=== PATIENT | male | born 1975 | race African-American/Black ===

== ENCOUNTER → 2017-07-29 | Outpatient (CLI) | payer BC ==
--- NOTE | 2017-07-30 11:54 | MR ---
EXAMINATION TYPE: MR lumbar spine wo con DATE OF EXAM: 07/29/2017 6:17 PM COMPARISON: NONE HISTORY: low back pain x8 years Multiplanar, MultiSpin echo imaging of the lumbar spine was performed. L1-L2: Normal disc appearance without desiccation. No herniation, protrusion or disc bulging. No ca nal stenosis is present. Foramina are patent bilaterally. L2-L3: Normal disc appearance without desiccation. No herniation, protrusion or disc bulging. No ca nal stenosis is present. Foramina are patent bilaterally. L3-L4: Normal disc appearance without desiccation. No herniation, protrusion or disc bulging. No ca nal stenosis is present. Foramina are patent bilaterally. L4-L5: Normal disc appearance without desiccation. No herniation, protrusion or disc bulging. No ca nal stenosis is present. Foramina are patent bilaterally. L5-S1: Moderate disc desiccation noted. Left paracentral disc herniation with partial encapsulating s pur. Left lateral recess stenosis and left foraminal encroachment. Edema of the exiting nerve root. P artial encapsulating spur is also identified. Degenerative change of the facet joints. Lumbar segments are intact. No paraspinal masses are identified. Conus medullaris has a normal appe arance. IMPRESSION: 1. Left paracentral disc herniation partial encapsulating spur resulting in disc endplate complex wit h left foraminal encroachment and left lateral recess stenosis at L5-S1.
== END | disposition home or self-care (01) ==
LOC: RADMRIMAIN 17:43
PROVIDERS: ATTEND Internal Medicine
DX: M48.07 Spinal stenosis, lumbosacral region (principal); M51.26 Other intervertebral disc displacement, lumbar region
CPT/HCPCS: 72148

== ENCOUNTER 2018-03-08 19:14 | Inpatient (IN) | payer BC ==
--- NOTE | 2018-03-08 19:19 | ED ---
Chest Pain HPI - General Stated Complaint: Chest Pain Time Seen by Provider: 03/08/18 19:16 Source: RN notes reviewed, old records reviewed - History of Present Illness Initial Comments: This is a 42-year-old male to the ER for evaluation. Patient resents today for evaluation regarding anterior chest pain heaviness. Patient is presenting for evaluation regarding syncopal event. Patient has family at bedside family was witnessed the syncope. Patient does admit to smoking marijuana today not having a very good appetite and made not eating or drinking much fluid throughout the day. He states he was sitting in his chair be given little sweaty chest heaviness and then passed out. Patient came to relatively quickly , and is still complaining of persistent chest pain since MD Complaint: chest pain -: minutes(s) Onset: during rest Pain Location: substernal, left chest Pain Radiation: none Severity: mild Severity scale (1-10): 4 Quality: heaviness Consistency: constant Improves With: nothing Worsens With: nothing Anginal Symptoms: nausea, diaphoresis, dyspnea Other Symptoms: cough, syncope Treatments Prior to Arrival: none - Related Data Home Medications Medication Instructions Recorded Confirmed No Known Home Medications 03/08/18 03/08/18 Allergies Allergy/AdvReac Type Severity Reaction Status Date / Time No Known Allergies Allergy Verified 03/08/18 19:37 Review of Systems ROS Statement: Those systems with pertinent positive or pertinent negative responses have been documented in the HPI. ROS Other: All systems not noted in ROS Statement are negative. EKG Findings - EKG Comments: EKG Findings:: EKS shows STEMI anterior ST elevation, inferior T inversion and depression, rate of 76, WV 124, QRS 112, QTc 447 General Exam General appearance: alert, in no apparent distress Head exam: Present: atraumatic, normocephalic, normal inspection Eye exam: Present: normal appearance, PERRL, EOMI. Absent: scleral icterus, conjunctival injection, periorbital swelling ENT exam: Present: normal exam, mucous membranes moist Neck exam: Present: normal inspection. Absent: tenderness, meningismus, lymphadenopathy Respiratory exam: Present: normal lung sounds bilaterally. Absent: respiratory distress, wheezes, rales, rhonchi, stridor Cardiovascular Exam: Present: regular rate, normal rhythm, normal heart sounds. Absent: systolic murmur, diastolic murmur, rubs, gallop, clicks GI/Abdominal exam: Present: soft, normal bowel sounds. Absent: distended, tenderness, guarding, rebound, rigid Extremities exam: Present: normal inspection, full ROM, normal capillary refill. Absent: tenderness, pedal edema, joint swelling, calf tenderness Back exam: Present: normal inspection Neurological exam: Present: alert, oriented X3, CN II-XII intact Psychiatric exam: Present: normal affect, normal mood Skin exam: Present: warm, dry, intact, normal color. Absent: rash Course Vital Signs 03/08/18 03/08/18 03/08/18 19:16 19:18 19:20 Temperature 98.0 F Pulse Rate 79 Respiratory 16 23 Rate Blood Pressure 124/81 124/81 O2 Sat by Pulse 94 L 93 L 94 L Oximetry 03/08/18 03/08/18 19:30 19:40 Temperature Pulse Rate 50 L 97 Respiratory 8 L 15 Rate Blood Pressure 124/81 91/58 O2 Sat by Pulse 95 96 Oximetry - Reevaluation(s) Reevaluation #1: 03/08/18 19:39 Medical record is reviewed Reevaluation #2: 03/08/18 19:39 Patient and family informed of positive EKG findings. She'll Dr. Murillo for cardiology, he is aware of patient, STEMI is paged on the overhead Chest Pain MDM - MDM 42 male to ER for evaluation of chest pain heaviness anterior chest after syncopal event. Patient is EKG findings positive for STEMI, patient be admitted to the [facility] Critical Care Time Critical Care Time: Yes Total Critical Care Time: 31 Disposition Clinical Impression: ST elevation myocardial infarction (STEMI), Syncope Disposition: ADMITTED IP TO THIS HOSP Condition: Serious Is patient prescribed a controlled substance at d/c from ED?: No Referrals: Anh Hernández MD [Primary Care Provider] - 1-2 days
[2018-03-08] MEDS ORDERED: SODIUM CHLORIDE 0.9% 1,000 ML IV STA (19:31)
[2018-03-08] MEDS ORDERED: HEPARIN SODIUM,PORCINE 5,000 UNIT/ML 1 ML VIAL IV PRN (19:37)
[2018-03-08] MEDS ORDERED: NITROGLYCERIN SL TABS 0.4 MG TAB SUBLINGUAL PRN (19:37)
[2018-03-08] MEDS ORDERED: HEPARIN SODIUM,PORCINE 5,000 UNIT/ML 1 ML VIAL IV ONE (19:37)
[2018-03-08] MEDS ORDERED: HEPARIN SOD,PORK IN 0.45% NACL 25,000 UNIT in 0.45% NACL 1 500ML.BAG IV SCH (19:45)
[2018-03-08] MEDS ORDERED: ASPIRIN 81 MG PO STA (19:48)
[2018-03-08 19:50] LABS: Basophils # (A) 0.1 k/uL (0-0.2); Basophils % (A) 1 %; Eosinophils # (A) 0.2 k/uL (0-0.7); Eosinophils % (A) 2 %; HCT 44.7 % (39.0-53.0); HGB 14.8 gm/dL (13.0-17.5); Lymphocytes # (A) 3.6 k/uL (1.0-4.8); Lymphocytes % (A) 37 %; MCH 30.7 pg (25.0-35.0); MCHC 33.2 g/dL (31.0-37.0); MCV 92.5 fL (80.0-100.0); Mean Platelet Volume 8.1; Monocytes # (A) 0.6 k/uL (0-1.0); Monocytes % (A) 7 %; Neutrophils # (A) 5.1 k/uL (1.3-7.7); Neutrophils % (A) 52 %; Platelet Count 294 k/uL (150-450); RBC 4.83 m/uL (4.30-5.90); RDW 14.6 % (11.5-15.5); WBC 9.8 k/uL (3.8-10.6)
--- NOTE | 2018-03-08 19:50 | XR ---
EXAMINATION TYPE: XR chest 2V DATE OF EXAM: 03/08/2018 COMPARISON: NONE HISTORY: Chest pain TECHNIQUE: Frontal and lateral views of the chest are obtained. FINDINGS: Heart and mediastinum are normal. Lungs are clear. Diaphragm is normal. There are chest le ads. IMPRESSION: No active cardiopulmonary disease.
[2018-03-08 20:04] LABS: D-Dimer 0.45 mg/L FEU (<0.60); INR 1.1 (<1.2); Partial Thromboplastin Time 24.8 sec (22.0-30.0); Prothrombin Time 10.6 sec (9.0-12.0)
[2018-03-08 20:05] LABS: ALT 37 U/L (21-72); AST 25 U/L (17-59); Alkaline Phosphatase 52 U/L (38-126); Anion Gap 6 mmol/L; Blood Urea Nitrogen 11 mg/dL (9-20); Calcium 9.1 mg/dL (8.4-10.2); Carbon Dioxide 26 mmol/L (22-30); Chloride 107 mmol/L (98-107); Glucose 93 mg/dL (74-99); Lipase 59 U/L (23-300); Magnesium 1.9 mg/dL (1.6-2.3); Potassium 4.3 mmol/L (3.5-5.1); Sodium 139 mmol/L (137-145); Total Bilirubin 0.7 mg/dL (0.2-1.3); Total Protein 7.1 g/dL (6.3-8.2)
[2018-03-08] MEDS ORDERED: LIDOCAINE 1% INJ 10MG/ML (20 ML MDV) ONE (20:08)
[2018-03-08 20:11] LABS: Creatine Kinase 267 U/L (55-170)
[2018-03-08] MEDS ORDERED: MIDAZOLAM 2 MG/2 ML VIAL ONE (20:22)
[2018-03-08] MEDS ORDERED: VERAPAMIL 2.5 MG/ML 2 ML AMP ONE (20:22)
[2018-03-08] MEDS ORDERED: HEPARIN SODIUM 1,000 UN/ML (10ML VL) ONE (20:22)
[2018-03-08 20:24] LABS: Creatine Kinase MB 1.1 ng/mL (0.0-2.4); Troponin I <0.012 ng/mL (0.000-0.034)
[2018-03-08] MEDS ORDERED: SODIUM CHLORIDE 0.9% 1,000 ML IV ONE (20:25)
[2018-03-08] MEDS ORDERED: IV FLUID CONTINUATION 1,000 ML IV ONE (20:25)
[2018-03-08] MEDS ORDERED: MIDAZOLAM 2 MG/2 ML VIAL IV ONE (20:26)
[2018-03-08] MEDS ORDERED: LIDOCAINE 1% INJ 10MG/ML (20 ML MDV) SQ ONE (20:28)
[2018-03-08] MEDS ORDERED: IOPAMIDOL-370 125ML BTL INJ ONE (20:40)
[2018-03-08] MEDS ORDERED: RX INFO: IV CONTRAST WAS GIVEN 1 EACH MISC MISCELLANE PRN (20:52)
--- NOTE | 2018-03-08 20:58 | P.CRDCN ---
History of Present Illness Consult date: 03/08/18 Chief complaint: Chest discomfort History of present illness: This is a 6-year-old gentleman who presented to the emergency room complaining of chest discomfort. The patient was in his usual state of health until earlier today when he had a witnessed syncopal episode. He had family at bedside who witnessed the episode. No prodromal symptoms of dizziness or lightheadedness or feeling of heart racing or fluttering. But after the episode he was experiencing chest discomfort, across the chest, as a tightness on the chest, without any radiation and without any associated symptoms. He did have some sweating associated with the chest discomfort. The chest discomfort was ongoing throughout the visit in the emergency room. The EKG showed sinus rhythm with ST elevation in the anterior leads and ST segment depression inferiorly. The chest x-ray did not show any acute abnormalities. Because of the ongoing chest discomfort and abnormal EKG which was concerning for ischemia I did recommend proceeding with a heart catheterization. The patient underwent an emergent heart catheterization and was found to have normal coronaries. The left ventricular end-diastolic pressure was normal as well and the left ventriculography revealed normal LV function. He did tolerate the procedure very well. In terms of past medical history the patient does not have any diabetes or hypertension or dyslipidemia. He does smoke about 1-1/2 pack of cigarettes every day. Beside that he does use marijuana and he did use marijuana earlier today. No family history of coronary artery disease. Past Medical History Past Medical History: No Reported History History of Any Multi-Drug Resistant Organisms: None Reported Past Surgical History: No Surgical Hx Reported Past Psychological History: No Psychological Hx Reported Smoking Status: Current every day smoker Past Alcohol Use History: None Reported Past Drug Use History: Marijuana Medications and Allergies Home Medications Medication Instructions Recorded Confirmed Type No Known Home Medications 03/08/18 03/08/18 History Allergies Allergy/AdvReac Type Severity Reaction Status Date / Time No Known Allergies Allergy Verified 03/08/18 19:37 Physical Exam Vitals: Vital Signs Temp Pulse Resp BP Pulse Ox 03/08/18 20:15 106/70 03/08/18 20:08 18 106/70 03/08/18 20:05 73 16 106/70 97 03/08/18 20:00 66 18 106/70 98 03/08/18 19:50 74 11 L 114/80 98 03/08/18 19:40 97 15 91/58 96 03/08/18 19:30 50 L 8 L 124/81 95 03/08/18 19:20 23 124/81 94 L 03/08/18 19:18 93 L 03/08/18 19:16 98.0 F 79 16 124/81 94 L Intake and Output 03/08/18 03/08/18 03/08/18 06:59 14:59 22:59 Intake Total 150 Balance 150 Intake: IV 150 Other: Weight 113.398 kg - Constitutional General appearance: no acute distress - Respiratory Respiratory: bilateral: CTA - Cardiovascular Rhythm: regular Heart sounds: normal: S1, S2 Results 03/08/18 19:33 03/08/18 19:33 Cardiac Enzymes 03/08/18 03/08/18 Range/Units 19:33 19:33 AST 25 (17-59) U/L CK-MB (CK-2) 1.1 (0.0-2.4) ng/mL Troponin I <0.012 (0.000-0.034) ng/mL Coagulation 03/08/18 Range/Units 19:33 PT 10.6 (9.0-12.0) sec APTT 24.8 (22.0-30.0) sec CBC 03/08/18 Range/Units 19:33 WBC 9.8 (3.8-10.6) k/uL RBC 4.83 (4.30-5.90) m/uL Hgb 14.8 (13.0-17.5) gm/dL Hct 44.7 (39.0-53.0) % Plt Count 294 (150-450) k/uL Comprehensive Metabolic Panel 03/08/18 Range/Units 19:33 Sodium 139 (137-145) mmol/L Potassium 4.3 (3.5-5.1) mmol/L Chloride 107 (98-107) mmol/L Carbon Dioxide 26 (22-30) mmol/L BUN 11 (9-20) mg/dL Creatinine 1.16 (0.66-1.25) mg/dL Glucose 93 (74-99) mg/dL Calcium 9.1 (8.4-10.2) mg/dL AST 25 (17-59) U/L ALT 37 (21-72) U/L Alkaline Phosphatase 52 (38-126) U/L Total Protein 7.1 (6.3-8.2) g/dL Albumin 4.0 (3.5-5.0) g/dL Current Medications Generic Name Dose Route Start Last Admin Trade Name Pao PRN Reason Stop Dose Admin Aspirin 325 mg 03/09/18 09:00 Aspirin PO DAILY [facility] Heparin Sodium (Porcine) 0 unit 03/08/18 19:37 Heparin IV Q6HR PRN Low PTT Protocol Heparin Sodium/Sodium Chloride 500 mls @ 20 mls/hr 03/08/18 19:45 25,000 unit/ Sodium Chloride IV .Q24H JOHN Protocol 8.82 UNITS/KG/HR Sodium Chloride 1,000 mls @ 100 mls/hr 03/08/18 19:45 Saline 0.9% IV .Q10H [facility] Sodium Chloride 1,000 mls @ 100 mls/hr 03/08/18 21:00 Saline 0.9% IV 03/09/18 02:01 .Q10H [facility] Metoprolol Tartrate 25 mg 03/08/18 21:00 Lopressor PO BID [facility] Miscellaneous Information 1 each 03/08/18 20:52 Rx Info: Iv Contrast Was Given MISCELLANE 03/10/18 20:52 DAILY PRN Per Protocol Nitroglycerin 0.4 mg 03/08/18 19:37 Nitrostat SUBLINGUAL Q5M PRN Chest Pain Intake and Output 03/08/18 03/08/18 03/08/18 06:59 14:59 22:59 Intake Total 150 Balance 150 Intake: IV 150 Other: Weight 113.398 kg Patient Weight 03/09/18 06:59 Weight 113.398 kg 03/08/18 19:33 03/08/18 19:33 Assessment and Plan Assessment: Assessment #1 chest discomfort #2 syncopal episode #3 significant history of smoking #4 significant history of marijuana use. Plan #1 the patient underwent a heart catheterization revealed normal coronaries #2 I would recommend monitoring the patient for additional 24 hours #3 we'll obtain an echocardiogram was Doppler #4 follow-up with the patient. Thank you for allowing us participate in his care as and we will continue following up with him
[2018-03-08] MEDS ORDERED: SODIUM CHLORIDE 0.9% 1,000 ML IV SCH (21:00)
[2018-03-08] MEDS: SODIUM CHLORIDE 0.9% 1,000 ML IV SCH ×2 (21:50→21:55)
[2018-03-08] MEDS: METOPROLOL TARTRATE 25 MG TAB PO SCH (21:53)
[2018-03-08] MEDS ORDERED: HYDROcodone/APAP 5-325MG 1 EACH TAB PO PRN (22:17)
[2018-03-08] MEDS ORDERED: HYDROmorphone 1 MG/ML 1 ML SYRINGE IVP PRN (22:18)
[2018-03-08] MEDS ORDERED: TEMAZEPAM 7.5 MG CAP PO PRN (22:18)
--- NOTE | 2018-03-08 22:39 | LTR ---
DATE OF SERVICE: March 08, 2018. Dear Dr. Hernández: Mr. Francisco Bhatia presented to the emergency room at [facility] after he had syncopal episode preceded by chest discomfort. His EKG was quite concerning for ischemia. Because of that, he underwent a heart catheterization which revealed normal coronaries. I want to thank you for allowing us to participate in his care and please do not hesitate to call us questions or concerns. Sincerely, ANKIT / EUGENIA: [id number] /
--- NOTE | 2018-03-08 22:39 | CC ---
CARDIAC CATHETERIZATION REPORT DATE OF SERVICE: March 08, 2018 PERFORMING PHYSICIAN: Estevan Murillo MD, wheel truing machine tender. PROCEDURE PERFORMED: 1. Selective right and left coronary angiogram. 2. Left heart catheterization. 3. Left ventriculography. INDICATIONS: This is a pleasant 42-year-old gentleman with history of hypertension and history of drug abuse with marijuana who presented to the hospital complaining of chest discomfort followed by syncope. The EKG was concerning for ischemia. Because of that, an emergent heart catheterization was advised. APPROACH: Right common femoral artery. COMPLICATION: None. LEVEL OF SEDATION: Moderate with sedation length of 14 minutes. PROCEDURE DESCRIPTION: After obtaining an informed consent, the patient was brought to the cardiac labor mediator. The right common femoral artery was cannulated using micropuncture technique and a micropuncture wire passed easily. Then I placed a 6-Swedish sheath in the right common femoral artery. After that, I did selective right and left coronary angiogram using JR4 and JL4 catheters. Left heart catheterization and left ventriculography were performed using 6-Swedish pigtail catheter. The procedure was completed without any complication. SELECTIVE CORONARY ANGIOGRAM: 1. The right coronary artery is a large caliber vessel and it is a dominant vessel. It is angiographically normal. Distally bifurcates into PDA and PLV branches both are angiographically normal. 2. The left main is angiographically normal. It bifurcates into the circumflex and left anterior descending artery. 3. The left circumflex is a large caliber vessel. It is a nondominant vessel. The proximal circumflex is normal. The mid circumflex is normal and gives rise into first OM branch which bifurcates into 2 small branches both are angiographically normal. The mid left circumflex after that and distal left circumflex appeared to be angiographically normal. 4. The left anterior descending artery: The proximal LAD appeared to be angiographically normal. It gives rise into the first diagonal branch which appeared to be angiographically normal. The mid LAD is normal as well and gives rise into a second diagonal branch which appeared to be angiographically normal. The LAD distally appeared to be angiographically normal. HEMODYNAMICS: The left ventricular end-diastolic pressure was 12 mmHg without significant gradient across the aortic valve. LEFT VENTRICULOGRAPHY: Left ventriculography was performed in the [place] projection and using a power injection. The left ventricular systolic function appeared to be normal with EF around 60% and hyperdynamic left ventricle. CONCLUSION: 1. Normal coronary angiogram. 2. Normal left ventricular end-diastolic pressure. 3. Normal hyperdynamic left ventricle. POST PROCEDURE MANAGEMENT: Maximize medical treatment and follow up with the patient. ANKIT / YOVANYN: [id number] /
[2018-03-08 23:11] LABS: Cholesterol 228 mg/dL (<200); HDL Cholesterol 40 mg/dL (40-60); LDL Cholesterol,Calculated 156 mg/dL (0-99); Triglycerides 162 mg/dL (<150)
[2018-03-09 01:56] LABS: Creatine Kinase 239 U/L (55-170)
[2018-03-09 02:09] LABS: Creatine Kinase MB 0.8 ng/mL (0.0-2.4); Troponin I <0.012 ng/mL (0.000-0.034)
[2018-03-09] MEDS: NICOTINE 14MG/24HR PATCH TRANSDERM SCH ×2 (04:18→07:51)
[2018-03-09] MEDS: METOPROLOL TARTRATE 25 MG TAB PO SCH (07:50)
[2018-03-09 08:05] LABS: Mean Platelet Volume 6.5; Platelet Count 295 k/uL (150-450)
[2018-03-09] MEDS ORDERED: ASPIRIN 325 MG TAB PO SCH (09:00)
--- NOTE | 2018-03-09 10:17 | CT ---
EXAMINATION TYPE: CT brain wo con DATE OF EXAM: 03/09/2018 COMPARISON: NONE HISTORY: Possible seizure CT DLP: 1103.4 mGycm. Automated Exposure Control for Dose Reduction was Utilized. TECHNIQUE: CT scan of the head is performed without contrast. FINDINGS: There is no acute intracranial hemorrhage, mass effect, or midline shift identified. Pun ctate calcification in the foramen of Nelson is likely choroid plexus calcification and benign. Incid ental note of a partially empty sella turcica. No suspicious extra-axial fluid collection. The ventri cles and sulci are within normal limits in size. The globes are intact and the visualized sinuses ar e clear. IMPRESSION: No acute intracranial hemorrhage, mass effect, or midline shift is seen.
--- NOTE | 2018-03-09 10:43 | P.HPIM ---
History of Present Illness 42-year-old gentleman came in to ER with complaints of brief episode of loss of consciousness possible seizure-like activity without any loss of bladder bowel or bladder incontinence denied any fever chills nausea vomiting abdominal pain patient does smoke marijuana daily basis did not smoke and increased dose of marijuana. Patient denied any postictal confusion. Patient when she woke up of from that the episode had chest pressure like sensation radiating to the right patient underwent cardia catheterization which did not show any significant coronary atherosclerotic vascular disease. Patient blood pressures although low may have had a syncopal episode and marijuana may have contributed to that. Cardiology cleared him for discharge and obtain a CAT scan of the head to rule out any intracranial bleed because of this possibly day of seizure although it episode is not typical for seizure. We will also obtain EEG and neurology evaluation if neurology clears and patient will be discharged patient' s LDL is elevated lifestyle modification counseling was provided for consulted nutrition regarding dietary counseling. Counseling regarding smoking cessation was provided. Review of Systems REVIEW OF SYSTEMS: CONSTITUTIONAL: No fever, no malaise, no fatigue. HEENT: No recent visual problems or hearing problems. Denied any sore throat. CARDIOVASCULAR: No chest pain, orthopnea, PND, no palpitations, PULMONARY: No shortness of breath, no cough, no hemoptysis. GASTROINTESTINAL: No diarrhea, no nausea, no vomiting, no abdominal pain. Normoactive bowel sounds. NEUROLOGICAL: No headaches, no weakness HEMATOLOGICAL: Denies any bleeding or petechiae. GENITOURINARY: Denies any burning micturition, frequency, or urgency. MUSCULOSKELETAL/RHEUMATOLOGICAL: Denies any joint pain, swelling, or any muscle pain. ENDOCRINE: Denies any polyuria or polydipsia. The rest of the 14-point review of systems is negative. Past Medical History Past Medical History: No Reported History History of Any Multi-Drug Resistant Organisms: None Reported Past Surgical History: No Surgical Hx Reported Past Psychological History: No Psychological Hx Reported Smoking Status: Current every day smoker Past Alcohol Use History: None Reported Past Drug Use History: Marijuana Medications and Allergies Home Medications Medication Instructions Recorded Confirmed Type Aspirin 81 mg PO DAILY #30 chewable 03/09/18 Rx Allergies Allergy/AdvReac Type Severity Reaction Status Date / Time No Known Allergies Allergy Verified 03/08/18 19:37 Physical Exam Vitals: Vital Signs Temp Pulse Pulse Resp BP BP Pulse Ox 03/09/18 07:53 17 10/22/18 07:48 97.5 F L 81 17 107/52 96 03/09/18 03:48 80 16 03/09/18 03:47 97.7 F 80 16 97/55 95 03/09/18 00:37 62 16 115/56 95 03/09/18 00:00 62 16 115/56 95 03/08/18 23:37 72 16 107/64 95 03/08/18 22:37 77 16 109/60 97 03/08/18 22:07 77 18 112/65 95 03/08/18 21:37 86 18 118/68 94 L 03/08/18 21:22 80 18 111/61 92 L 03/08/18 21:07 70 18 113/56 97 03/08/18 20:52 87 18 115/67 96 03/08/18 20:25 87 18 115/67 96 03/08/18 20:15 106/70 03/08/18 20:08 18 106/70 03/08/18 20:05 73 16 106/70 97 03/08/18 20:00 66 18 106/70 98 03/08/18 19:50 74 11 L 114/80 98 03/08/18 19:40 97 15 91/58 96 03/08/18 19:30 50 L 8 L 124/81 95 03/08/18 19:20 23 124/81 94 L 03/08/18 19:18 93 L 03/08/18 19:16 98.0 F 79 16 124/81 94 L Intake and Output 03/08/18 03/09/18 03/09/18 22:59 06:59 14:59 Intake Total 150 100 Balance 150 100 Intake: IV 150 Oral 100 Other: Voiding Method Urinal Urinal # Voids 1 Weight 109.9 kg 108.8 kg PHYSICAL EXAMINATION: GENERAL: The patient is alert and oriented x3, not in any acute distress. Well developed, well nourished. HEENT: Pupils are round and equally reacting to light. EOMI. No scleral icterus. No conjunctival pallor. Normocephalic, atraumatic. No pharyngeal erythema. No thyromegaly. CARDIOVASCULAR: S1 and S2 present. No murmurs, rubs, or gallops. PULMONARY: Chest is clear to auscultation, no wheezing or crackles. ABDOMEN: Soft, nontender, nondistended, normoactive bowel sounds. No palpable organomegaly. MUSCULOSKELETAL: No joint swelling or deformity. EXTREMITIES: No cyanosis, clubbing, or pedal edema. NEUROLOGICAL: Gross neurological examination did not reveal any focal deficits. SKIN: No rashes. Results CBC & Chem 7: 03/09/18 07:33 03/08/18 19:33 Labs: Abnormal Lab Results - Last 24 Hours (Table) 03/08/18 03/08/18 03/09/18 Range/Units 19:33 19:33 01:13 Total Creatine Kinase 267 H 239 H (55-170) U/L Triglycerides 162 H (<150) mg/dL Cholesterol 228 H (<200) mg/dL LDL Cholesterol, Calc 156 H (0-99) mg/dL Thrombosis Risk Factor Assmnt - Choose All That Apply Any of the Below Risk Factors Present?: Yes Each Factor Represents 1 point: Acute [place], Obesity (BMI >25) Other Risk Factors: No Other congenital or acquired thrombophilia - If yes, enter type in comment: No Thrombosis Risk Factor Assessment Total Risk Factor Score: 2 Thrombosis Risk Factor Assessment Level: Low Risk Assessment and Plan Plan: -Possible seizure or syncope: Possibility of seizure is low but eval further evaluation for seizure as mentioned above and regarding syncope which can be related to his low normal blood pressure and marijuana use. No heart rhythm abnormality. Cardiac catheterization did not show any atherosclerotic coronary occlusive disease. The patient has similar episodes in the future may need further evaluation with a Holter monitor. -Chest pain: Status post cardiac catheterization -Hyperlipidemia -Nicotine use -Marijuana use -Chronic low back pain Patient will be discharged today after evaluation by neurology, EEG.
--- NOTE | 2018-03-09 10:43 | P.DS ---
Providers Date of admission: 03/08/18 19:37 Attending physician: Tiffany Ren Consults: 03/08/18 19:37 Consult Physician Urgent Consulting Provider: Estevan Murillo Consult Reason/Comments: mi Do you want consulting provider notified?: Yes 03/09/18 09:41 Consult Physician Routine Consulting Provider: Renetta Fountain Consult Reason/Comments: Possible seizure Do you want consulting provider notified?: Yes Primary care physician: Edgar Kamara [facility] Course: Please refer to my HPI Patient Condition at Discharge: Serious Plan - Discharge Summary Discharge Rx Participant: No New Discharge Prescriptions: New Aspirin 81 mg PO DAILY #30 chewable Discharge Medication List Aspirin 81 mg PO DAILY #30 chewable 03/09/18 [Rx] Follow up Appointment(s)/Referral(s): Anh Hernández MD [Primary Care Provider] - 3 Days (Computers are down. Please call to schedule appointment) Estevan Murillo MD [STAFF PHYSICIAN] - 03/17/18 10:00 am (Friday) Patient Instructions/Handouts: *Surgery [facility] - After Heart Catheterization - Forming Process Worker Instructions, Left Heart Catheterization (DC) Discharge Disposition: HOME SELF-CARE
--- NOTE | 2018-03-09 11:29 | P.PN ---
Subjective Progress Note Date: 03/09/18 This is a 42-year-old -[place] gentleman who presented to the hospital with symptoms of chest discomfort.patient was in his usual state of health until earlier that day when he had a witnessed syncopal episode. He did have family at the bedside who witnessed this as well. After the episode patient was complaining of chest discomfort with some associated diaphoresis. His EKG on admission showed normal sinus rhythm with ST elevation in the anterior leads and ST depression inferiorly. Because of the ongoing chest discomfort and abnormality and EKG the patient was taken to the cardiac catheterization lab. He had an emergent cardiac catheterization and was found to have normal coronary arteries. Echo showed normal LV function. The patient does smoke one to one and a half packs of cigarettes per day as well as marijuana use, he does not have any history of diabetes, hypertension, or hyperlipidemia. No family history of premature coronary artery disease.patient was seen and examined this morning, denies any chest discomfort, breathing overall is stable. Undergoing neurology workup at this time.blood pressure 108/50 with a heart rate in the 80s , 96% on room air. Objective - Vital Signs Vital signs: Vital Signs Temp 97.5 F L 03/09/18 07:48 Pulse 81 03/09/18 07:48 Resp 17 03/09/18 07:53 BP 107/52 03/09/18 07:48 Pulse Ox 96 03/09/18 07:48 Intake & Output 03/08/18 03/09/18 03/09/18 18:59 06:59 18:59 Intake Total 150 100 Balance 150 100 Weight 108.8 kg Intake: IV 150 Oral 100 Other: Voiding Method Urinal Urinal # Voids 1 2 - Exam PHYSICAL EXAMINATION: GENERAL:42-year-old -[place] gentleman in no acute distress at the time of my examination HEENT: Head is atraumatic, normocephalic. Pupils equal, round. Sclera anicteric. Conjunctiva are clear. Mucous membranes of the mouth are moist. Neck is supple. There is no elevated jugular venous pressure.no carotid bruit is heard. HEART EXAMINATION: [Heart S1, S2 normal. No murmur or gallop heard.] CHEST EXAMINATION:[ Lungs are clear to auscultation and precussion. No chest wall tenderness is noted on palpation or with deep breathing.] ABDOMEN: [ Soft, nontender. Bowel sounds are heard. No organomegaly noted]. EXTREMITIES:[ 2+ peripheral pulses with no evidence of peripheral edema and no calf tenderness noted].right groin soft, no evidence of any hematoma. NEUROLOGIC [patient is awake, alert and oriented X3.] . - Labs CBC & Chem 7: 03/09/18 07:33 03/08/18 19:33 Labs: Abnormal Lab Results - Last 24 Hours (Table) 03/08/18 03/08/18 03/09/18 Range/Units 19:33 19:33 01:13 Total Creatine Kinase 267 H 239 H (55-170) U/L Triglycerides 162 H (<150) mg/dL Cholesterol 228 H (<200) mg/dL LDL Cholesterol, Calc 156 H (0-99) mg/dL Assessment and Plan Plan: Assessment and plan #1 chest discomfort with abnormality in EKG, status post cardiac catheterization which revealed or more coronary arterieswith normal LV function. #2 nicotine dependence #3 syncope neurology workup in progress #4 marijuana use Plan We will obtain an echocardiogram with Doppler study, d-dimer level. Neurology workup is in progress.from cardiology standpoint, we will review the echo, patient may be able to be discharged once cleared by primary and neurology. Follow-up appointment to see Dr. Ross in the office post discharge. Discharge home on aspirin and statin. DNP note has been reviewed, I agree with a documented findings and plan of care. Patient was seen and examined.
[2018-03-09 14:28] VITALS: BMI 31.6
[2018-03-09 16:08] VITALS: BP 125/66; PULSE 78; RESP 16; TEMP 98
--- NOTE | 2018-03-09 17:28 | EEG ---
ELECTROENCEPHALOGRAM REPORT DATE OF SERVICE: 03/09/2018. REASON FOR TESTING: Seizure. DESCRIPTION OF THE PROCEDURE: This EEG was performed using a 21 channel digital electroencephalograph, following international 10-20 system. DESCRIPTION OF THE RECORDING: From the beginning of the tracing, and with patient's eyes closed, the background rhythm was mostly consisting of 11 Hz alpha frequency in the posterior occipital leads. No obvious asymmetry is seen. Frequent muscle and movement artifacts are seen. Photic stimulation was performed with no driving response seen. No pathological waves were elicited. Hyperventilation was not performed. The patient remains awake throughout the tracing. No epileptiform discharges were seen. His EKG lead showed a regular rate and rhythm. INTERPRETATION: This awake EEG can be considered within normal limits. There is no asymmetry seen. No epileptiform discharges were noticed. The absence of epileptiform discharges does not rule out the diagnosis of epilepsy; therefore clinical correlation is recommended. MMALETHEAL / IJKenya: [id number] /
--- NOTE | 2018-03-09 19:20 | ECHOF ---
Referral Reason:chest pain MEASUREMENTS -------- HEIGHT: 185.4 cm WEIGHT: 108.4 kg BP: 122/65 RVIDd: 2.9 cm (< 3.3) IVSd: 1.3 cm (0.6 - 1.1) LVIDd: 4.2 cm (3.9 - 5.3) LVPWd: 1.1 cm (0.6 - 1.1) IVSs: 1.7 cm LVIDs: 2.9 cm LVPWs: 1.7 cm LA Diam: 3.5 cm (2.7 - 3.8) LAESV Index (A-L): 25.41 ml/m Ao Diam: 3.5 cm (2.0 - 3.7) AV Cusp: 2.8 cm (1.5 - 2.6) EPSS: 0.5 cm MV E Blayne: 0.99 m/s MV DecT: 143 ms MV A Blayne: 0.67 m/s MV E/A Ratio: 1.49 RAP: 5.00 mmHg RVSP: 25.83 mmHg MV EF SLOPE: 104.57 mm/s (70 - 150) MV EXCURSION: 1.54 cm (> 18.000) FINDINGS -------- Sinus rhythm. This was a technically good study. The left ventricular size is normal. There is mild concentric left ventricular hypertrophy. Overa ll left ventricular systolic function is normal with, an EF between 55 - 60 %. The right ventricle is normal in size. Normal LA size by volume 22+/-6 ml/m2. The right atrium is normal in size. The aortic valve is trileaflet and appears structurally normal. Mild mitral regurgitation is present. Mild tricuspid regurgitation present. Right ventricular systolic pressure is normal at < 35 mmHg. There is no pulmonic regurgitation present. The aortic root size is normal. Normal inferior vena cava with normal inspiratory collapse consistent with estimated right atrial pre ssure of 5 mmHg. The inferior vena cava is mildly dilated. There is no pericardial effusion. CONCLUSIONS -------- 1. Sinus rhythm. 2. This was a technically good study. 3. The left ventricular size is normal. 4. There is mild concentric left ventricular hypertrophy. 5. Overall left ventricular systolic function is normal with, an EF between 55 - 60 %. 6. The right ventricle is normal in size. 7. Normal LA size by volume 22+/-6 ml/m2. 8. The right atrium is normal in size. 9. The aortic valve is trileaflet and appears structurally normal. 10. Mild mitral regurgitation is present. 11. Mild tricuspid regurgitation present. 12. Right ventricular systolic pressure is normal at < 35 mmHg. 13. There is no pulmonic regurgitation present. 14. The aortic root size is normal. 15. Normal inferior vena cava with normal inspiratory collapse consistent with estimated right atrial pressure of 5 mmHg. 16. The inferior vena cava is mildly dilated. 17. There is no pericardial effusion. [employer] SALESPERSON: MARLENE Dolan
[2018-03-10] MEDS ORDERED: ASPIRIN 81 MG PO SCH (09:00)
--- NOTE | 2018-03-10 09:42 | CONS ---
CONSULTATION DATE OF CONSULTATION: 03/09/2018 CHIEF COMPLAINT: Syncope. HISTORY OF PRESENT ILLNESS: Mr. Bhatia is a 42-year-old, male, who is being evaluated today on 03/09/2018 by the Neurology Service per the request of Dr. Ren for a syncopal spell. The patient was brought into [facility] emergency room after he had a witnessed episode of loss of consciousness. The patient states that he was at home. And admits to smoking marijuana on his couch. When he went to stand up, he collapsed back in the couch and was unresponsive for several seconds. This was witnessed by his friends and family members, and occasional jerking activity was described, but the patient did not have any generalized jerking or tongue biting or sphincter incontinence. When the patient woke up, he did not have any confusion and just felt light-headed. In the emergency room, his EKG showed ST elevations and Cardiology was consulted. A heart cath was done, which showed no significant stenosis and his cardiac enzymes were negative. He was started on aspirin and a neurology consultation was obtained for his syncope. I did review his EEG, which was normal. His CT scan of the brain showed no intracranial abnormalities. At the time of my evaluation, he is lying in his bed and appears to be in no acute distress. He has not had any further presyncopal or syncopal episodes since his admission. PAST MEDICAL HISTORY: None. PAST SURGICAL HISTORY: None. SOCIAL HISTORY: The patient is a current every day smoker. He also smokes marijuana. He denies any alcohol or IV drug use. FAMILY HISTORY: Positive for hypertension. HOME MEDICATIONS: None. ALLERGIES: No known drug allergies. REVIEW OF SYSTEM: As mentioned above and otherwise negative. PHYSICAL EXAM: Vital signs show a temperature of 98.0, pulse 78, respirations 16, blood pressure 125/66. GENERAL APPEARANCE: The patient is a well-developed, male, who appears to be in no acute distress. HEENT: Normocephalic, atraumatic, no facial asymmetry is seen. NECK: Supple with no masses felt. CARDIOVASCULAR: Regular rate and rhythm. ABDOMEN: Nontender, nondistended. EXTREMITIES: Showed no edema or clubbing. NEUROLOGICAL EXAM: The patient is awake and oriented x3. Speech and language are normal. Strength is full in all 4 extremities. Sensory exam was normal to light touch in all 4 extremities. No facial asymmetry is seen on cranial nerve testing. No tremors or seizure-like activity is seen. IMPRESSION: 1. Syncopal spell. 2. Acute myocardial infarction. 3. Tobacco use. 4. Marijuana use. RECOMMENDATION: The patient's syncopal episode is not consistent with any seizure-like activity. He did not have any postictal confusion or drowsiness and had no sphincter incontinence or tongue biting. His episode is most likely cardiovascular in etiology. I did review his EEG and CT scan of the brain both of which were normal. The patient was counseled on marijuana and tobacco cessation. Continue anti-platelet therapy. Cardiology is following. No further inpatient neurological workup is needed and he is cleared from a neurology standpoint, for discharge. I will continue to follow with you as needed. Thank you for allowing me to participate in the care of your patient. If you have any questions, please feel free to contact me. ANKIT / EUGENIA: [id number] /
== END 2018-03-09 19:25 | disposition home or self-care (01) | DRG 287 ==
LOC: EC 19:14 → 3SCARD 19:37
PROVIDERS: ADMIT Hospitalist; ATTEND Hospitalist
PROC: B2111ZZ Fluoroscopy of Multiple Coronary Arteries using Low Osmolar Contrast (ICD-10-PCS; 2018-03-08)
PROC: B2151ZZ Fluoroscopy of Left Heart using Low Osmolar Contrast (ICD-10-PCS; 2018-03-08)
PROC: 4A023N7 Measurement of Cardiac Sampling and Pressure, Left Heart, Percutaneous Approach (ICD-10-PCS; principal; 2018-03-08 20:10)
DX: R07.9 Chest pain, unspecified (principal); E78.5 Hyperlipidemia, unspecified; F17.200 Nicotine dependence, unspecified, uncomplicated; G89.29 Other chronic pain; I10 Essential (primary) hypertension; Z79.82 Long term (current) use of aspirin; M54.5 Low back pain; Z71.6 Tobacco abuse counseling; F12.10 Cannabis abuse, uncomplicated; Z88.6 Allergy status to analgesic agent; R55 Syncope and collapse
CPT/HCPCS: 36415; 70450; 71046; 80053; 80061; 82550; 82553; 83690; 83735; 83880; 84484; 85025; 85049; 85379; 85610; 85730; 93005; 93306; 93458; 95816; 96360; 96374; 99291